=== PATIENT | female | born 1975 | race African-American/Black ===

== ENCOUNTER 2016-07-21 10:15 | Emergency (ER) | payer OTHER ==
[2016-07-21] MEDS ORDERED: IBUPROFEN 800 MG TABLET PO STA (11:49)
[2016-07-21] MEDS ORDERED: IBUPROFEN 800 MG TABLET PO ONE (11:50)
== END 2016-07-21 12:14 | disposition home or self-care (01) ==
DX: M67.911 Unspecified disorder of synovium and tendon, right shoulder (principal); X50.1XXA Overexertion from prolonged static or awkward postures, initial encounter; Y93.89 Activity, other specified; Y92.89 Other specified places as the place of occurrence of the external cause; Y99.0 Civilian activity done for income or pay; F17.200 Nicotine dependence, unspecified, uncomplicated
CPT/HCPCS: 73030; 99283; A9270

== ENCOUNTER 2017-02-01 11:07 | Emergency (ER) | payer BC, OTHER ==
[2017-02-01] MEDS ORDERED: ONDANSETRON ODT 4 MG TABLET TL STA (11:43)
[2017-02-01 12:04] LABS: BILIRUBIN,URINE NEGATIVE (NEGATIVE)
[2017-02-01 12:06] LABS: UA w/ MICROSCOPIC CHARGE YES
[2017-02-01 12:07] LABS: HCG UR QUAL NEGATIVE
[2017-02-01] MEDS ORDERED: ONDANSETRON ODT 4 MG TABLET ONE (12:11)
[2017-02-01 12:13] LABS: UR CULTURE IF IND NOT INDICATED; WBC,URINE 0-3 /HPF (0-5)
--- NOTE | 2017-02-01 12:20 | ED Physician Documentation ---
History of Present Illness - Stated complaint Stated Complaint: N/V/D - Chief complaint Chief Complaint: Abd Pain - Additonal information Additional information: hx from pt 41 y/o f denies preg was in good health went to [place] next day [place] now diarrhea no blood all water no sick contacts travel or recent ab Review of Systems Constitutional: denies: Fever GI: reports: Nausea, Vomiting, Diarrhea. denies: Abdominal Pain, Bloody / black stool : denies: Now EGA Immunocompromised: denies: Immunocompromised PD PAST MEDICAL HISTORY - Past Medical History Past Medical History: Yes Cardiovascular: None Respiratory: None Neuro: None Endocrine/Autoimmune: None GI: None Musculoskeletal: None - Past Surgical History Past Surgical History: Yes - Present Medications Home Medications: Ambulatory Orders Medication Instructions Recorded Confirmed Ondansetron Odt [Zofran] 4 mg TL Q6H PRN #10 tablet 02/01/17 - Allergies Allergies/Adverse Reactions: Allergies Allergy/AdvReac Type Severity Reaction Status Date / Time No Known Drug Allergies Allergy Verified 02/01/17 11:18 - Social History Does the pt smoke?: Yes Smoking Status: Current every day smoker ETOH Use: Beer - Immunizations Immunizations are current?: Yes PD ED PE NORMAL - Vitals Vital signs reviewed: Yes - Neck Neck: Supple, no meningeal sign - Cardiac Cardiac: RRR - Respiratory Respiratory: No respiratory distress, Clear bilaterally - Abdomen Abdomen: Soft, Non tender - Derm Derm: Normal color - Extremities Extremities: No deformity - Neuro Neuro: Alert and oriented X 3 Results - Vitals Vitals: Vital Signs - 24 hr 02/01/17 11:16 Temperature 36.7 C Heart Rate 73 Respiratory 13 Rate Blood Pressure 134/93 H O2 Saturation 99 Oxygen O2 Source Room air - Labs Labs: Laboratory Tests 02/01/17 02/01/17 11:41 11:41 Urine Color LT. YELLOW Urine Clarity CLEAR Urine pH 6.0 Ur Specific [place] <=1.005 <=1.005 Urine Protein NEGATIVE Urine Glucose (UA) NEGATIVE Urine Ketones NEGATIVE Urine Occult Blood TRACE-INTA Urine Nitrite NEGATIVE Urine Bilirubin NEGATIVE Urine Urobilinogen 0.2 (NORMAL) Ur Leukocyte Esterase TRACE H Urine RBC 0-5 Urine WBC 0-3 Ur Squamous Epith Cells MOD Squamous H Urine Bacteria Moderate H Ur Microscopic Review INDICATED Urine Culture Comments NOT INDICATED Urine HCG, Qual NEGATIVE PD MEDICAL DECISION MAKING - ED course ED course: pt unable to produce a stool sample will dc with zofran for [place] to allow hydration and pt to collect sample at home and take to PMD for culture Departure - Departure Disposition: 01 Home, Self Care Clinical Impression: Diarrhea Qualifiers: Diarrhea type: unspecified type Qualified Code(s): R19.7 - Diarrhea, unspecified Condition: Good Instructions: ED Food Poison Or Gastroenteritis Follow-Up: [facility] [Provider Group] (call for ER follow up and to establish care if you do not have a PMD) Prescriptions: Ondansetron Odt [Zofran] 4 mg TL Q6H PRN #10 tablet PRN Reason: Nausea / Vomiting Comments: Take the zofran as needed for nausea and vomiting so you can stay hydrated. Please collect a stool sample at home and take it to your PMD - it would help identify if you have a bacterial source of food poisoning such as salmonella which would require antibiotics Also your blood pressure was high today - please follow up with your PMD to get it rechecked Forms: Activity restrictions
[2017-02-01 13:25] VITALS: BP 121/87
== END 2017-02-01 13:37 | disposition home or self-care (01) ==
LOC: ED 11:07
DX: R19.7 Diarrhea, unspecified (principal); R11.2 Nausea with vomiting, unspecified; F17.200 Nicotine dependence, unspecified, uncomplicated
CPT/HCPCS: 81001; 81025; 99283; Q0162; 81003; 87086

== ENCOUNTER 2017-03-10 09:17 | Outpatient (CLI) | payer OTHER, BC ==
--- NOTE | 2017-03-10 12:14 | MRI Report ---
EXAM: RIGHT SHOULDER MRI WITHOUT CONTRAST EXAM DATE: 03/10/2017 10:00 AM. CLINICAL HISTORY: Subacromial bursitis, right. COMPARISON: None. TECHNIQUE: Multiplanar, multisequence T1-weighted and fluid-sensitive sequences of the shoulder witho ut contrast. Other: None. FINDINGS: Acromioclavicular Region: Type II unipartite undersurface osseous acromion shape. 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 The coracoacromial and coracoclavicular ligaments are intact. Moderate bursal flu id is present. Glenohumeral Region: No subluxation. No effusion or loose bodies. The articular cartilage is unremark able. The glenohumeral ligaments and joint capsule are unremarkable. Bone Marrow: No fracture, marrow edema or bone lesions. Labrum: Multiloculated inferior anterior paralabral cyst arises from an inferior labral tear. Please see series 401 image 10, series 501 image 11. Musculature/Rotator Cuff: Some increased T2 signal without tears seen at the supraspinatus and infras pinatus portion of the cuff. Subscapularis and teres minor components are normal. No edema or fatty a trophy. Biceps Tendon: The long head of the biceps tendon and biceps katrina are intact. Other: The subcutaneous tissues are unremarkable. IMPRESSION: 1. Type II unipartite undersurface osseous acromion shape. 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 Sma ll amount of bursal fluid is present. 2. Inferior labral tear with an associated multilocular paralabral cyst. This measures 2.5 x 0.8 x 1. 1 cm. 3. Tendinopathy at the supraspinatus and infraspinatus portion of the rotator cuff. [facility] MUSCULOSKELETAL RADIOLOGY SECTION Referring Provider Line: [phone] SITE ID: [id number]
== END 2017-03-10 09:18 | disposition home or self-care (01) ==
LOC: DI 09:17
PROVIDERS: ATTEND Orthopaedic Surgery
DX: S43.401A Unspecified sprain of right shoulder joint, initial encounter (principal); S43.431A Superior glenoid labrum lesion of right shoulder, initial encounter; M19.011 Primary osteoarthritis, right shoulder